=== PATIENT | female | born 1965 | race Caucasian/White ===

== ENCOUNTER 2025-07-03 17:48 | Emergency (ER) | payer OTHER, SELFPAY ==
[2025-07-03] VITALS (7 sets, daily range): BP systolic 105–135; BP diastolic 62–88; PULSE 63–79; RESP 16–18; TEMP 36.6; O2SAT 95–99; BMI 38.6
--- NOTE | 2025-07-03 17:50 | XRR_ITS ---
PROCEDURE INFORMATION: Exam: XR Chest Exam date and time: 07/03/2025 5:59 PM Age: 59 years old Clinical indication: Pain; Chest pressure; Additional info: Cp TECHNIQUE: Imaging protocol: Radiologic exam of the chest. Views: 1 view. COMPARISON: No relevant prior studies available. FINDINGS: Tubes, catheters and devices: Overlying monitor leads. Lungs: Increased markings lower right lung in relation to the left. No consolidation. No pulmonary edema. Pleural spaces: Unremarkable. No pleural effusion. No pneumothorax. Heart/Mediastinum: Unremarkable. No cardiomegaly. Bones/joints: Visualized osseous structures show no acute abnormality. Partially visualized cervical fusion hardware within the lower cervical spine. XR/XR chest 1V portable [id number] IMPRESSION: 1. Increased markings lower right lung, asymmetric with the left side. This could reflect acute or chronic change, without comparison exam. Regarding acute change, consider mild infiltrate or pneumonia. No consolidation. 2. No acute findings otherwise.
--- NOTE | 2025-07-03 17:50 | ECG_ITS ---
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 Measurements Intervals [place] Rate: 77 P: 59 IN: 172 QRS: 75 QRSD: 145 T: 36 QT: 398 QTc: 453 Interpretive Statements SINUS RHYTHM POSSIBLE LEFT ATRIAL ENLARGEMENT [-0.1mV P-WAVE IN V1/V2] RIGHT BUNDLE BRANCH BLOCK [120+ ms QRS DURATION, UPRIGHT V1, 40+ ms S IN I/aVL/V4/V5/V6] INTERPRETATION BASED ON A DEFAULT AGE OF 40 YEARS No previous ECG available for comparison Electronically Signed On 07-07-2025 08:54:30 CDT by Heath Abdalla M.D. [email or web address]
--- NOTE | 2025-07-03 18:06 | ED_ITS ---
HPI - Chest Pain 2 General: Chief Complaint: Chest Pain Stated Complaint: CP, Jaw painR side, R arm tingling Time Seen by Provider: 07/03/25 17:52 Source: patient Mode of arrival: ambulatory Limitations: no limitations History of Present Illness: 59-year-old female who states that she b een having some chest pain over the last 2 hours. States it has been a pressure type pain she denies any nausea or diaphoresis or shortness of breath. States pain currently is a 1 out of 10. She denies any Associated symptoms: Deny abdominal pain, dyspnea, fever(s), nausea or vomiting Review of Systems 2 Const: Denies: fever(s), chills, body aches or change in appetite ENMT: Denies: throat pain or dental pain Card: Reports: chest pain Resp: Denies: dyspnea GI: Denies: abdominal pain, nausea, vomiting or diarrhea Musc: Denies: neck pain or back pain Skin/Breast: Denies: rash Neuro: Denies: headache(s) Physical Exam 2 Const: COMMON NORMALS: no acute distress, patient oriented x3 and healthy appearing HENMT: COMMON NORMALS: normocephalic and atraumatic HEAD & SCALP: n ormocephalic and atraumatic Eye: COMMON NORMALS: conjunctivae normal CONJUNCTIVA: Yes conjunctivae normal Neck/C-Spine: COMMON NORMALS: full ROM and supple Chest: COMMONS NORMALS: normal inspection of the chest and normal palpation of entire chest wall Resp: COMMON NORMALS: normal respiratory effort, No retractions, No use of accessory muscles and clear to auscultation bilaterally AUSCULTATION: clear to auscultation bilaterally Cardio: COMMON NORMALS: regular rate, regular rhythm and No murmurs present (Cardio) RATE: regular rate RHYTHM: regular rhythm Extremity: COMMON NORMALS: normal to inspection and full ROM Neuro: COMMON NORMALS: patient oriented x3, moves all extremities and no focal motor deficits Psych: COMMON NORMALS: mental status grossly normal, Normal thought process present and cooperative THOUGHT PROCESS: Normal thought process present Skin: COMMON NORMALS: no rashes or lesions noted and no wounds GENERAL SKIN EXAM: no rashes or lesions noted Course 2 Vital Signs: Vital signs: Vital Signs Temperature 97.8 F 07/03/25 18:00 Pulse Rate 65 07/03/25 21:09 Respiratory Rate 16 07/03/25 21:09 Blood Pressure 117/69 07/03/25 21:09 Pulse Oximetry 95 07/03/25 21:09 Oxygen Delivery Me thod Room Air 07/03/25 21:09 MDM - Chest Pain Medical Decision Making Patient presents for chest pain since resolved she has been well-appearing here initial repeat troponins are negative no signs of ACS no signs of PE or aortic dissection she is stable for discharge she is to follow-up with her PCP return if worsening she understands agrees to plan Medical Records I reviewed the patient's medical records. Lab Data I reviewed the patient's lab results. 07/03/25 18:25 07/03/25 18:25 Radiology Impressions Chest X-Ray 07/03/25 17:50 IMPRESSION: 1. Increased markings lower right lung, asymmetric with the left side. This could reflect acute or chronic change, without comparison exam. Regarding acute change, consider mild infiltrate or pneumonia. No consolidation. 2. No acute findings otherwise. Laboratory Results WBC 9.50 10^3/uL (3.29-11.43) 07/03/25 18: RBC 4.87 10^6/uL (3.85-5.65) 07/03/25 18: Hgb 14.20 g/dL (11.27-16.99) 07/03/25 18: Hct 42.3 % (36-47) 07/03/25 18: MCV 86.9 fl (85-98) 07/03/25 18: MCH 29.2 pg (27-33) 07/03/25 18: MCHC 33.6 g/dL (30-55) 07/03/25 18: RDW 13.1 % (12.1-15.1) 07/03/25 18: Plt Count 343 10^3/cmm (157-399) 07/03/25 18: MPV 9.7 fL (7.4-10.4) 07/03/25 18: Neut % (Auto) 60.7 % 07/03/25 18: Lymph % (Auto) 30.7 % 07/03/25 18:25 [place] % (Auto) 6.0 % 07/03/25 18: Eos % (Auto) 1.6 % 07/03/25 18:25 Baso % (Auto) 0.6 % 07/03/25 18:25 Neut # (Auto) 5.76 10^3/uL (1.8-7.7) 07/03/25 18: Lymph # (Auto) 2.9 10^3/uL (0.8-4.8) 07/03/25 18:25 [place] # (Auto) 0.6 10^3/uL (0.2-0.9) 07/03/25 18: Eos # (Auto) 0.2 10^3/uL (0.0-0.8) 07/03/25 18: Baso # (Auto) 0.1 10^3/uL (0.0-0.1) 07/03/25 18: Nucleated RBC % (auto) 0 % 07/03/25 18: Nucleated RBCs # 0.0 /100WBC 07/03/25 18:25 PT 12.40 SECONDS (12.1-14.9) 07/03/25 18: INR 0.87 (0.8-1.2) 07/03/25 18:25 Sodium 138 mmol/L (136-145) 07/03/25 18:25 Potassium 3.5 mmol/L (3.5-5.1) 07/03/25 18:25 Chloride 103 mmol/L (98-107) 07/03/25 18:25 Carbon Dioxide 24 mmol/L (22-29) 07/03/25 18:25 Anion Gap 14.5 (5-19) 07/03/25 18:25 BUN 11 mg/dL (6-20) 07/03/25 18:25 Creatinine 0.6 mg/dL (0.5-0.9) 07/03/25 18:25 GFR Calculation 103.0 mL/min (90-130) 07/03/25 18:25 Glucose 148 mg/dL (65-115) H 07/03/25 18:25 Calculated Osmolality 288 mOsm/kg (285-295) 07/03/25 18:25 Calcium 9.1 mg/dL (8.5-10.5) 07/03/25 18:25 Total Bilirubin 0.4 mg/dL (0.15-1.2) 07/03/25 18:25 AST 23 U/L (0-32) 07/03/25 18:25 ALT 26 U/L (0-33) 07/03/25 18:25 Alkaline Phosphatase 120 U/L (35-105) H 07/03/25 18:25 Troponin T Baseline < 6 ng/L (0-10) 07/03/25 18:25 Troponin T 120 Minute < 6.0 ng/L (0-10) 07/03/25 20:19 Delta Troponin T 0 ABS# (0-10) 07/03/25 20:19 Total Protein 7.4 g/dL (6.6-8.7) 07/03/25 18:25 Albumin 4.3 g/dL (3.5-5.2) 07/03/25 18:25 Globulin 3.1 g/dL (1.3-4.6) 07/03/25 18:25 Lipase 33 U/L (13-60) 07/03/25 18:25 All radiology interpretation(s) finalized by discharge EKG Data EKG 1: I personally reviewed and interpreted this EKG as follows: EKG interpretation date: 07/03/25 EKG interpretation time: 17:57 Interpretation: nsr hr [address] elevation qrs 145 qtc 430 EKG 2: I personally reviewed and interpreted this EKG as follows: EKG interpretation date: 07/03/25 EKG interpretation time: 20:32 Interpretation: nsr hr [address] elevation qrs 132 qtc 423 Clincial Decision Support The following clinical decision support tools were used to aid in care of the patient HEART Score -> History: Slightly Suspicous, EKG: Normal, Age: 45-64 yrs, Risk Factors: 1 or 2 Risk Factors, Troponin: Baseline Trop <16 ng/L. Resulting HEART Score: 2. Discharge Plan Discharge Patient Disposition: Home Clinical Impression: Chest pain Condition: Stable Discharge Orders: Discharge ED (Routine); Ordered 07/03/25 Ordered By: Vinny Glass Discharge Diet: Advance as tolerated Discharge Activity: Resume usual activity Patient Instructions: Chest Pain (ED) Print Language: Irish Coding Level of Care Code ED Transverse Abdominal Muscle Nurse for Calvin Miranda
[2025-07-03] MEDS: lidocaine 2% viscous 15 ML, aluminum-mag hydrox-simethicon 30 ML, sucralfate oral liq 1 GM PO (18:13)
[2025-07-03 18:45] LABS: Hematocrit 42.3 % (36-47); Hemoglobin 14.20 g/dL (11.27-16.99); Mean Corpuscular HGB Conc 33.6 g/dL (30-55); Mean Corpuscular Hemoglobin 29.2 pg (27-33); Mean Corpuscular Volume 86.9 fl (85-98); Nucleated Red Blood Cells % 0 %; Platelet Count 343 10^3/cmm (157-399); Red Blood Count 4.87 10^6/uL (3.85-5.65); White Blood Count 9.50 10^3/uL (3.29-11.43)
[2025-07-03 18:58] LABS: INR 0.87 (0.8-1.2); Prothrombin Time 12.40 SECONDS (12.1-14.9)
[2025-07-03 19:02] LABS: Alanine Aminotransferase 26 U/L (0-33); Albumin Level 4.3 g/dL (3.5-5.2); Alkaline Phosphatase 120 U/L (35-105); Anion Gap 14.5 (5-19); Aspartate Amino Transferase 23 U/L (0-32); Blood Urea Nitrogen 11 mg/dL (6-20); Calcium 9.1 mg/dL (8.5-10.5); Carbon Dioxide 24 mmol/L (22-29); Chloride 103 mmol/L (98-107); Creatinine Clr Calc Pharmacy 120.2668; Globulin 3.1 g/dL (1.3-4.6); Glucose 148 mg/dL (65-115); Lipase 33 U/L (13-60); Osmolality Calculated 288 mOsm/kg (285-295); Potassium 3.5 mmol/L (3.5-5.1); Sodium 138 mmol/L (136-145); Total Protein 7.4 g/dL (6.6-8.7)
[2025-07-03 19:03] LABS: Troponin(5th) Baseline < 6 ng/L (0-10)
--- NOTE | 2025-07-03 20:32 | ECG_ITS ---
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 Measurements Intervals [place] Rate: 62 P: 59 MD: 170 QRS: 58 QRSD: 132 T: 43 QT: 417 QTc: 426 Interpretive Statements SINUS RHYTHM RIGHT BUNDLE BRANCH BLOCK [120+ ms QRS DURATION, UPRIGHT V1, 40+ ms S IN I/aVL/V4/V5/V6] Compared to ECG 07/03/2025 17:57:04 No significant changes Electronically Signed On 07-07-2025 09:46:41 CDT by Heath Abdalla M.D. [email or web address]
[2025-07-03 20:58] LABS: Troponin 5 2HR < 6.0 ng/L (0-10); Troponin 5 2HR Delta 0 ABS# (0-10)
== END 2025-07-03 21:21 | disposition home or self-care (01) ==
PROVIDERS: Emergency Provider Emergency Medicine
DX: R07.9 Chest pain, unspecified (principal)
CPT/HCPCS: 36415; 71045; 80053; 83690; 84484; 85025; 85610; 93005; 99285; J9999